=== PATIENT | male | born 1995 | race Native Hawaiian/Other Pacific Islander ===

== ENCOUNTER 2018-12-25 18:35 | Emergency (ER) | payer OTHER ==
[~2018-12-25] VITALS: Ht 180.3 cm; Wt 94.3 kg
[2018-12-25 18:41] VITALS: BP 170/88; TEMP 98
[2018-12-25] MEDS ORDERED: TRILEPTAL300 MG PO ×2 (19:26→19:29)
[2018-12-25] MEDS ORDERED: VENLAFAXINE150 M1 PO (19:30)
[2018-12-25] MEDS ORDERED: LEVO0.0529 PO (19:31)
== END 2018-12-25 19:45 | disposition home or self-care (01) ==
LOC: ED 18:35
PROC: 0CQ10ZZ Repair Lower Lip, Open Approach (ICD-10-PCS; principal; 2018-12-25)
DX: S01.511A Laceration without foreign body of lip, initial encounter (principal); W50.0XXA Accidental hit or strike by another person, initial encounter; Y92.149 Unspecified place in prison as the place of occurrence of the external cause
CPT/HCPCS: 90471; 90715; 99283